=== PATIENT | male | born 2000 | race African-American/Black ===

== ENCOUNTER 2020-11-08 00:50 | Emergency (ER) | payer SELFPAY ==
[~2020-11-08] VITALS: Ht 165.1 cm; Wt 63.5 kg
[2020-11-08 01:00] VITALS: BP 135/79
[2020-11-08] MEDS ORDERED: AMOX-430 PO (01:26)
[2020-11-08] MEDS ORDERED: DOXY-326 PO (01:26)
[2020-11-08 01:46] LABS: BILIRUBIN,URINE SMALL (NEGATIVE); COLOR,URINE YELLOW (YELLOW); LEUKOCYTE ESTERASE ,URINE Trace (NEGATIVE); NITRITE, URINE Negative (NEGATIVE); PROTEIN,URINE >=300 mg/dl (NEGATIVE); UGLUCOSE Negative (NEGATIVE)
[2020-11-08 02:35] LABS: BACTERIA,URINE Many /HPF (None Seen); SQUAMOUS EPITHELIAL CELL,UR Few /HPF (None Seen); WBC,URINE 81-100 /HPF (0-3)
== END 2020-11-08 02:39 | disposition home or self-care (01) ==
LOC: ER 00:55
DX: N39.0 Urinary tract infection, site not specified (principal); Z79.899 Other long term (current) drug therapy
CPT/HCPCS: 81001; 87086-TC